=== PATIENT | male | born 1955 | race Caucasian/White ===

== ENCOUNTER → 2016-05-02 | Outpatient (CLI) | payer BC ==
[2016-05-02 20:08] LABS: ALBUMIN 3.6 g/dL (3.4-5.0); ANION GAP 11.7 MEQ/L (3-15); PHOSPHORUS 4.1 mg/dL (2.4-4.9)
[2016-05-02 22:13] LABS: BILIRUBIN,URINE Negative (Negative); CLARITY,URINE Clear; COLOR,URINE Yellow; GLUCOSE, URINE (UA) Negative (Negative); LEUKOCYTE ESTERASE ,URINE Negative (Negative); PH,URINE 6.5 (5.0 - 8.0); UROBILINOGEN,URINE 0.2 mg/dL (0.2-1.0)
== END ==
LOC: LAB 19:27
PROVIDERS: ATTEND Specialist
DX: N18.3 Chronic kidney disease, stage 3 (moderate) (principal); I10 Essential (primary) hypertension; Z94.0 Kidney transplant status
CPT/HCPCS: 36415; 80069; 81003; 82570; 84156